=== PATIENT | female | born 1970 | race Caucasian/White ===

== ENCOUNTER 2019-11-06 21:07 | Emergency (ER) | payer OTHER, SELFPAY ==
[2019-11-06 21:15] VITALS: BP 133/80; PULSE 98; RESP 18; TEMP 36.9; O2SAT 100; BMI 33.3
--- NOTE | 2019-11-06 21:20 | ED_ITS ---
HPI - General Adult General Chief complaint: Extremity Injury, Lower Stated complaint: right ankle injury, fall from counter Time Seen by Provider: 11/06/19 21:09 Source: patient Mode of arrival: Wheelchair Limitations: no limitations History of Present Illness HPI narrative: Patient is a 49-year-old female here for evaluation of right ankle injury. Patient states that she was standing on a counter removing tape after she was painting and as she was coming down from the counter she rolled her right ankle. Was unable to walk on it afterwards. Has an abrasion on the outside of the ankle. All of her pain is on the outside of the ankle. She also has numbness and tingling to her foot. Has not tried anything for symptoms prior to arrival. No injuries to this ankle in the past. Arrived in a wheelchair. No other injuries reported from the fall Review of Systems Constitutional Constitutional: Denies fever(s) Cardiovascular Cardiovascular: Denies chest pain and Denies dyspnea Respiratory Respiratory: Denies dyspnea Musculoskeletal Comments: Right ankle pain Integumentary/Breasts Comments: Abrasion to the right ankle Neurologic Comments: Tingling to the right foot Hematologic/Lymphatic Hematologic/Lymphatic: Denies easy bleeding and Denies easy bruising Patient History Medical History Patient denies medical problems (Acute) Social History Smoking Status: Former smoker Exam Initial Vital Signs Initial Vital Signs: Vital Signs Temperature 98.5 F 11/06/19 21:15 Pulse Rate 98 H 11/06/19 21:15 Respiratory Rate 18 11/06/19 21:15 Blood Pressure 133/80 11/06/19 21:15 Pulse Oximetry 100 11/06/19 21:15 Const General: cooperative and comfortable Limitations: mental status not altered HENTN Head: normal to inspection and normocephalic Cardio Pulses: dorsalis pedis present on the right Skin Other: Has a 1 cm x 1 cm abrasion over the lateral malleolus without active bleeding Neuro Other: Reports decrease in sensation to the right foot compared to the left Extrem Other: No proximal fibula tenderness. Has tenderness to palpation of the later al malleolus and the base of the 5th metatarsal. Medial malleolus unremarkable. Cannot flex and extend secondary to pain. The rest of her right foot is unremarkable. Psych Appearance: grossly normal and well kempt Procedures Orthopedic Splinting/Casting Injury #1: Side: right Lower Extremity Injury Location: ankle Lower Extremity Immobilizer: Prieto wrap Post splinting neuro exam: no change Post splinting vascular exam: no change Placed by: Nursing Course Orders Ordered: ED Orders 11/06/19 21:19 XR ankle RT min 3V Stat XR foot RT min 3V Stat Vital Signs Vital signs: Vital Signs - 8 hr 11/06/19 21:15 Temperature 98.5 F Pulse Rate 98 H Respiratory Rate 18 Blood Pressure 133/80 Pulse Oximetry 100 Medical Decision Making Imaging Data Extremity x-ray #1: Radiologist's Impression: [address] [address] XRay Report Signed Patient: Breanna Mendez [facility]#: [id number] : 1970Acct:[id number] Age/Sex: 49 / FDate of Service: 11/06/19 Loc: ED Accession Number: [id number] Procedure: XR foot RT min 3V Ordering Provider: Crow Sparrow D.O. PROCEDURE: XR FOOT RT MIN 3V INDICATIONS: [address] pain after fall TECHNIQUE: 3 views of the foot were acquired. COMPARISON: None. FINDINGS: Bones: No fractures or dislocations. No suspicious bony lesions. Soft tissues: No tibiotalar joint effusion. Achilles tendon appears normal. IMPRESSION: No acute fracture. No osseous lesion. If symptoms and/or clinical suspicion for pathology persist, further assessment with repeat, or advanced imaging (e.g., CT, MRI, or bone scan) may be helpful for further assessment. Dictated by: Kiko Tony M.D. on 11/06/2019 at 21:33 Approved by: Kiko Tony M.D. on 11/06/2019 at 21:34 Extremity x-ray #2: Radiologist's Impression: [address] [address] XRay Report Signed Patient: Breanna Mendez [facility]#: [id number] : 1970Acct:[id number] Age/Sex: 49 / FDate of Service: 11/06/19 Loc: ED Accession Number: [id number] Procedure: XR ankle RT min 3V Ordering Provider: Crow Sparrow D.O. PROCEDURE: XR ANKLE RT MIN 3V INDICATIONS: lateral mal pain after fall TECHNIQUE: 3 views of the ankle were acquired. COMPARISON: None. FINDINGS: Bones: No fractures or dislocations. Ankle mortise is normally aligned. No suspicious bony lesions. Soft tissues: No tibiotalar joint effusion. Achilles tendon appears normal. IMPRESSION: No acute fracture. No osseous lesion. If symptoms and/or clinical suspicion for pathology persist, further assessment with repeat, or advanced imaging (e.g., CT, MRI, or bone scan) may be helpful for further assessment. Dictated by: Kiko Tony M.D. on 11/06/2019 at 21:34 Approved by: Kiko Tony M.D. on 11/06/2019 at 21:34 MDM Narrative Medical decision making narrative: No fractures noted on the x-rays. Has good dorsalis pedis pulse. The abrasion on the ankle needs no intervention. Placed in an Prieto bandage. Offered crutches the patient declined. Did discuss return precautions and follow-up instructions in care instructions. She expressed understanding and agreement. Discharge Plan Departure Patient Disposition: Home Clinical Impression: Ankle sprain Qualifiers: Encounter type: initial encounter Involved ligament of ankle: unspecified ligament Laterality: right Qualified Code(s): S93.401A - Sprain of unspecified ligament of right ankle, initial encounter Instructions: DI for Ankle Sprain, How To Perform RICE (Rest, Ice, Compress, Elevate), How to Apply an Elastic Wrap on Ankle Activity Restrictions/Additional Instructions: I do recommend that you keep your foot elevated and ice on it. I would not be surprised if you get some bruising and swelling over the next couple days. There were no fractures on the x-rays see you can walk on your ankle as tolerated. Return to the emergency department for any new or worsening s ymptoms. You can take Tylenol and/or ibuprofen for any discomfort.
== END 2019-11-06 21:52 | disposition home or self-care (01) ==
PROVIDERS: Emergency Provider Emergency Medicine
DX: S93.401A Sprain of unspecified ligament of right ankle, initial encounter (principal); W22.8XXA Striking against or struck by other objects, initial encounter
CPT/HCPCS: 73610; 73630; 99283

== ENCOUNTER → 2021-01-12 10:30 | Outpatient (CLI) | payer OTHER, SELFPAY ==
[2021-01-12 11:50] LABS: Hemoglobin 13.9 g/dL (12.0-16.0); Mean Corpuscular HGB Conc 33.1 % (30-36); Mean Corpuscular Hemoglobin 29.4 PG (26-34); Platelet Count 170 X10^3/uL (150-400); Red Blood Cell Count 4.72 X10^6/uL (4.0-5.2); Red Cell Distribution Width 13.3 % (11.6-14.8); White Blood Cell Count 3.8 X10^3/uL (4.5-11.0)
[2021-01-12 12:11] LABS: Alanine Aminotransferase 23 IU/L (<35); Albumin 4.3 g/dL (3.5-5.0); Albumin Globulin Ratio 1.4 (1.0-2.8); Alkaline Phosphatase 69 U/L (38-126); Aspartate Aminotransferase 33 IU/L (14-36); BUN Creatinine Ratio 18.9 (6-22); Bilirubin Total 0.5 mg/dL (0.2-1.3); Blood Urea Nitrogen 14 mg/dL (7-17); Calcium 9.5 mg/dL (8.4-10.2); Carbon Dioxide 25 mmol/L (22-32); Chloride 111 mmol/L (98-107); Cholesterol 263 mg/dL (140-199); Estimated Glomerular Filt Rate > 60.0 mL/min (>60); Glucose 98 mg/dL (70-100); HDL Cholesterol 48 mg/dL (40-60); HEMOLYSIS 24 (0-50); LDL Cholesterol Calculated 184 mg/dL (<100); Potassium 4.7 mmol/L (3.4-5.1); Sodium 142 mmol/L (137-145); Total Protein 7.3 g/dL (6.3-8.2); Triglycerides 155 mg/dL (35-150)
[2021-01-12 12:29] LABS: Free T3, Triiodothyronine Free 3.11 pg/mL (2.77-5.27); Free T4, Direct Thyroxine 0.89 ng/dL (0.78-2.19)
[2021-01-12 12:42] LABS: Thyroid Stimulating Hormone 2.02 uIU/mL (0.47-4.68)
== END ==
PROVIDERS: PCP Nurse Practitioner; Referring Provider Nurse Practitioner; Visit Provider Nurse Practitioner
DX: Z00.00 Encounter for general adult medical examination without abnormal findings (principal); F41.8 Other specified anxiety disorders; Z78.0 Asymptomatic menopausal state
CPT/HCPCS: 36415; 80053; 80061; 83001; 84439; 84443; 84481; 85027

== ENCOUNTER 2021-01-14 15:31 | Emergency (ER) | payer OTHER, SELFPAY ==
[2021-01-14 15:35] VITALS: BP 162/79; PULSE 81; RESP 16; TEMP 36.8; O2SAT 98; BMI 37.5
--- NOTE | 2021-01-14 15:54 | DI.RAD.S_ITS ---
PROCEDURE: XR ANKLE RT MIN 3V INDICATIONS: achilles tendon pain, felt pop, unable to bear weight TECHNIQUE: 3 views of the ankle were acquired. COMPARISON: [facility], CR, XR ANKLE RT MIN 3V, 11/06/2019, 21:22. FINDINGS: Bones: No fractures or dislocations. Ankle mortise is normally aligned. No suspicious bony lesions. Soft tissues: No tibiotalar joint effusion. Achilles tendon appears mildly thickened approximately 4 cm above the posterior margin of the calcaneus.. IMPRESSION: Suspect mild focal thickening of the Achilles tendon 4 cm above the calcaneal insertion. MR scanning for more accurate assessment for presence or absence of Achilles tendon partial-thickness tear likely is warranted.. Dictated by: Jean Marie Werner M.D. on 01/14/2021 at 16:36 Approved by: Jean Marie Werner M.D. on 01/14/2021 at 16:44
--- NOTE | 2021-01-14 18:31 | ED_ITS ---
HPI - Extremity Injury (Lower) General Chief Complaint: Extremity Injury, Lower Stated Complaint: rt foot pain, swelling Time Seen by Provider: 01/14/21 18:31 Source: patient Mode of arrival: Family Vehicle History of Present Illness HPI Narrative: 50-year-old woman with a history of anxiety was chasing after her grandchild earlier today she jumped quickly and felt of pain/pop tach/tear in the back of her right calf extending down toward the heel. She did not fall there was no other overt trauma, she has no bruising or hematoma. Her calf is quite tender and swollen and she is having trouble bearing any weight on that foot. She describes no numbness or tingling, there is no knee complaints. Related Data Previous Rx's Medication Instructions Recorded albuterol sulfate 90 mcg/actuation 1 puff INHALATION Q6H PRN #6.7 g 12/08/20 aerosol inhaler (ProAir HFA) buspirone 10 mg tablet 10 mg PO BID #180 tab 12/08/20 Allergies Allergy/AdvReac Type Severity Reaction Status Date / Time levofloxacin [From Levaquin] AdvReac Intermediate Dizziness Verified 01/14/21 15:40 Review of Systems Review of Systems Narrative: Pertinent positive and negative findings as per HPI Remainder of review of systems is otherwise unremarkable for Constitutional: Fevers, chills, weakness ENT: No sore throat, neck pain, ear pain CV: Chest pain, palpitations, Respiratory: Cough, wheeze, dyspnea GI: Nausea, vomiting, diarrhea, : Dysuria, hematuria, Patient History Medical History Asthma Depression with anxiety Menopause Patient denies medical problems Social History Smoking Status: Former smoker Smoking Status: Former smoker alcohol intake frequency: a few times a week Substance Use Type: does not use Exam Narrative Exam Narrative: General: Alert appropriate in no acute distress Respiratory: Able to speak in full sentences, no obvious respiratory distress Skin: No obvious rashes, warm and dry Neurologic: Grossly intact no obvious asymmetries or abnormalities Psych: appropriate insight and affect, cooperative Extremity: Right calf is swollen and extremely tender with compression. Compression does not cause any movement of the foot. She has swelling and tenderness over the Achilles. There is no obvious ecchymosis or skin injury. She is neurovascularly intact Initial Vital Signs Initial Vital Signs: Vital Signs Temperature 98.2 F 01/14/21 15:35 Pulse Rate 81 01/14/21 15:35 Respiratory Rate 16 01/14/21 15:35 Blood Pressure 162/79 H 01/14/21 15:35 Pulse Oximetry 98 01/14/21 15:35 Procedures Orthopedic Splinting/Casting Right lower extremity: Time of procedure: 19:09 Lower Extremity Immobilizer: posterior splint (With foot in slight extension, position of comfort) Post splinting neuro exam: intact Post splinting vascular exam: intact Placed by: Nursing Course Course Course Narrative: 50-year-old woman with likely at least partial Achilles tendon tear. She is placed in a posterior splint is with the foot in slight flexion she is given a walker (she felt that crutches would be too unstable for her), she declined any narcotic medication. Will follow up with Orthopedic surgery for definitive diagnosis and treatment. She is safe for home discharge Orders Ordered: ED Orders 01/14/21 15:54 XR ankle RT min 3V Stat Discontinued Medications Acetaminophen (Acetaminophen 325 Mg Tablet) 325 mg PO NOW ONE Stop: 01/14/21 19:02 Last Admin: 01/14/21 19:05 Dose: 325 mg Documented by: GAVIN Ibuprofen (Ibuprofen 400 Mg Tablet) 400 mg PO NOW ONE Stop: 01/14/21 19:02 Last Admin: 01/14/21 19:05 Dose: 400 mg Documented by: GAVIN Vital Signs Vital signs: Vital Signs - 8 hr 01/14/21 15:35 01/14/21 19:01 Temperature 98.2 F Pulse Rate 81 88 Respiratory Rate 16 20 Blood Pressure 162/79 H 169/54 H Pulse Oximetry 98 99 MDM - Extremity Injury (Lower) Differential Diagnosis Differential diagnosis: Unlikely ankle sprain and strain, acute internal derangement of knee or ankle fracture Imaging Data XR ankle: Radiologist's Impression: FINDINGS: Bones: No fractures or dislocations. Ankle mortise is normally aligned. No suspicious bony lesions. Soft tissues: No tibiotalar joint effusion. Achilles tendon appears mildly thickened approximately 4 cm above the posterior margin of the calcaneus.. IMPRESSION: Suspect mild focal thickening of the Achilles tendon 4 cm above the calcaneal insertion. MR scanning for more accurate assessment for presence or absence of Achilles tendon partial-thickness tear likely is warranted.. Dictated by: Jean Marie Werner M.D. on 01/14/2021 at 16:36 Discharge Plan Departure Patient Disposition: Home Clinical Impression: Achilles tendon tear Qualifiers: Encounter type: initial encounter Laterality: right Qualified Code(s): S86.011A - Strain of right Achilles tendon, initial encounter Instructions: DI for Achilles Tendon Rupture Activity Restrictions/Additional Instructions: Thank you for coming in today Your exam and the history does suggest that you at least partially tore your Achilles tendon. The x-ray is also suggesting this. There are no bony injuries. Need to keep the splint in place and use the walker for stability. You will need to follow-up with Dr. Jackson, orthopedic surgeon with [facility]. Please call [phone] to schedule a follow-up appointment for definitive diagnosis and care. Using 400 mg of ibuprofen (2 [id number]-[id number] pills) and 1 Tylenol every 6 hours can be very helpful in controlling pain. If you find things are worsening please return to the ER. Prescriptions: No Action buspirone 10 mg tablet 10 mg PO BID Qty: 180 RF: 3 albuterol sulfate [ProAir HFA] 90 mcg/actuation HFA aerosol inhaler 1 puff inhalation Q6H PRN (Reason: shortness of breath or wheezing) Qty: 6.7 RF: 2 Referrals: Kimberly Gamino ARNP [Primary Care Provider] - Kee Jackson MD [Physician] -
--- NOTE | 2021-01-14 18:59 | PC.NURSE ---
Pt was splinted in a short posterior leg splint. Circulation intact and pt taught and reiterated how to adjust splint if needed
[2021-01-14 19:01] VITALS: BP 169/54; PULSE 88; RESP 20; O2SAT 99
[2021-01-14] MEDS: ACETAMINOPHEN 325 MG TABLET PO (19:05)
[2021-01-14] MEDS: IBUPROFEN 400 MG TABLET PO (19:05)
--- NOTE | 2021-01-14 19:12 | PC.NURSE ---
No walkers were available to give pt to go home with so the Shaye, assistant warehouse manager said to give her a PT walker and the pt and her daughter stated that they will return it in just a few days after they secure one of their own.
--- NOTE | 2021-01-15 11:10 | PC.NURSE ---
Pt called requesting scooter prescription to [facility] in [place]. Called [facility], Dr. Mike authorized prescription for scooter however [facility] no longer does any DME supplies. Called patient back and made them aware.
== END 2021-01-14 19:27 | disposition home or self-care (01) ==
PROVIDERS: Emergency Provider Emergency Medicine; PCP Nurse Practitioner
DX: S86.011A Strain of right Achilles tendon, initial encounter (principal); X58.XXXA Exposure to other specified factors, initial encounter
CPT/HCPCS: 73610; 99283

== ENCOUNTER 2022-03-28 22:11 | Emergency (ER) | payer OTHER, SELFPAY ==
[2022-03-28 22:32] VITALS: BP 147/72; PULSE 61; RESP 15; TEMP 36.3; O2SAT 95
== END 2022-03-28 23:25 | disposition left against medical advice (07) ==
PROVIDERS: Emergency Provider Emergency Medicine; PCP Nurse Practitioner
CPT/HCPCS: 99281

== ENCOUNTER 2025-02-25 12:16 | Emergency (ER) | payer OTHER, SELFPAY ==
[2025-02-25 12:21] VITALS: BP 164/87; PULSE 93; RESP 18; TEMP 37; O2SAT 96; BMI 37.8
[2025-02-25 12:46] LABS: Add Manual Diff / Slide Review NO; Hematocrit 40.2 % (36-46); Hemoglobin 13.5 g/dL (12.0-16.0); Lymphocytes Absolute Auto 1000 /uL (1100-4500); Mean Corpuscular HGB Conc 33.6 % (30-36); Mean Corpuscular Hemoglobin 28.7 PG (26-34); Mean Corpuscular Volume 85.3 fL (80-100); Platelet Count 189 X10^3/uL (150-400)
[2025-02-25 13:00] LABS: Alanine Aminotransferase 20 IU/L (<35); Albumin 4.5 g/dL (3.5-5.0); Albumin Globulin Ratio 1.4 (1.0-2.8); Alkaline Phosphatase 73 U/L (38-126); Blood Urea Nitrogen 14 mg/dL (7-17); Calcium 9.4 mg/dL (8.4-10.2); Carbon Dioxide 24 mmol/L (22-32); Chloride 105 mmol/L (98-107); Estimated Glomerular Filt Rate > 60 mL/min (>60); Globulin 3.2 g/dL (1.7-4.1); Glucose 98 mg/dL (70-99); HEMOLYSIS < 15 (0-50); Lipase 89 U/L (23-300); Potassium 4.3 mmol/L (3.4-5.1); Sodium 137 mmol/L (137-145); Total Protein 7.7 g/dL (6.3-8.2)
--- NOTE | 2025-02-25 13:31 | DI.CT.S_ITS ---
PROCEDURE: CT ABDOMEN PELVIS W CON INDICATIONS: diarrhea for 1 week, LLQ tenderness TECHNIQUE: After the administration of intravenous contrast, axial sections acquired from the lung bases to the pubic symphysis. Coronal and sagittal reformats were performed. For radiation dose reduction, the following was used: automated exposure control, adjustment of mA and/or kV according to patient size. COMPARISON: None. FINDINGS: Image quality: Diagnostic. Lower Chest: No significant findings. ABDOMEN: Liver: No solid mass. Gallbladder: No radiopaque gallstones or wall thickening. Biliary ducts: No biliary dilation. Pancreas: No ductal dilation. Spleen: Size is within normal limits. Adrenal Glands: No adrenal nodules. Kidneys and Ureters: No hydronephrosis. No solid mass. No complex renal cystic lesion which requires follow up. Stomach and Bowel: There is diffuse wall thickening involving transverse colon, descending colon and sigmoid colon extending to rectal sigmoid junction with narrowing of the lumen and mild pericolonic fat stranding. No small bowel or stomach wall thickening. Small hiatal hernia. Normal wall thickness in ascending colon. No abscess collection. Peritoneum: No abnormal intraperitoneal fluid. No free air. Ventral Wall: No significant ventral hernia. Abdominal Nodes: No retroperitoneal or mesenteric adenopathy by size criteria. Vessels: Aorta and inferior vena cava are normal in size. PELVIS: Pelvic Organs: Unremarkable. Bladder: No bladder wall thickening, accounting for underdistention. Pelvic Nodes: No enlarged lymph nodes. Miscellaneous: No inguinal hernias are seen. Bones: No aggressive osseous abnormality. IMPRESSION: 1. Finding is suggestive of infectious inflammatory colitis involving transverse, descending and sigmoid colon. No abscess collection. No free fluid or free air. No bowel obstruction. Dictated by: Hernandez Foster M.D. on 02/25/2025 at 14:23 Approved by: Hernandez Foster M.D. on 02/25/2025 at 14:24
--- NOTE | 2025-02-25 14:33 | ED_ITS ---
<Statement entered by Ezio Laurent, DO - 02/25/25 17:42> Co-sign statement: I was available for consultation during this patient's emergency department visit. This chart is being signed by myself for administrative purposes only. I do not have direct contact with this patient during this visit. They were seen independently by the APC. HPI - Nausea/Vomiting/Diarrhea General Chief complaint: Nausea/Vomiting/Diarrhea Stated complaint: diarrhea over a wk, headache fever Time Seen by Provider: 02/25/25 12:19 Source: patient Mode of arrival: Ambulatory History of Present Illness HPI Narrative: 55-year-old female presents to the ED with 8 days of diarrhea. Patient states that she was traveling, got the diarrhea towards the end. Two days later, patient started experiencing bilateral ear pain. Patient was diagnosed with bilateral otitis media and prescribed Augmentin. Patient states that her ears have improved, with slight pain in the left ear only. Patient's diarrhea on the other hand has continued unabated. Patient has stopped the Augmentin due to suspicion of it contributing to the diarrhea after having taken 5 days of medication. Endorses mild nausea, abdominal cramping, diarrhea. No fever, chills, chest pain, shortness of breath, vomiting, dysuria, lightheadedness, dizziness, syncope. Related Data Previous Rx's ?Medication ?Instructions ?Recorded albuterol sulfate 90 mcg/actuation 1 puff inhalation Q 6H PRN 12/08/20 aerosol inhaler (ProAir HFA) shortness of breath or wh eezing #6.7 grams buspirone 10 mg tablet 10 mg PO BID #180 tabs 12/08 Allergies Allergy/AdvReac Type Severity Reaction Status Date / Time levofloxacin (From Levaquin) AdvReac Intermediate Dizziness Verified 01/14/21 15:40 Review of Systems Constitutional Constitutional: Denies chills, Denies fatigue, Denies fever(s), Denies frequent falls, Denies lethargy and Denies weakness Eyes Eyes: Denies change in vision, Denies eye discharge, Denies irritation and Denies loss of vision ENT Ears, Nose, Mouth, and Throat: Denies change in voice, Denies dizziness, Reports otalgia, Denies neck pain, Denies sore throat and Denies throat swelling Cardiovascular Cardiovascular: Denies chest pain, Denies irregular heart rhythm, Denies lightheadedness, Denies palpitations, Denies dyspnea, Denies dyspnea on exertion and Denies orthopnea Respiratory Respiratory: Denies cough, Denies dyspnea, Denies dyspnea on exertion and Denies wheezing Gastrointestinal Gastrointestinal: Reports abdominal pain, Denies change in bowel habits, Reports diarrhea, Reports nausea and Denies vomiting Musculoskeletal Musculoskeletal: Denies neck pain and Denies numbness Integumentary/Breasts Skin/Breast: Denies pruritus, Denies erythema, Denies rash and Denies wounds Neurologic Neurologic: Denies behavioral changes, Denies confusion, Denies dizziness, Denies frequent falls, Denies loss of vision, Denies numbness and Denies weakness Psychiatric Psychiatric: Denies anxiety, Denies behavioral changes, Denies confusion, Denies depression, Denies homicidal ideation and Denies suicidal ideation Endocrine Endocrine: Denies fatigue, Denies flushing and Denies palpitations Hematologic/Lymphatic Hematologic/Lymphatic: Denies easy bruising Allergic/Immunologic Allergic/Immunologic: Denies urticaria, Denies throat swelling and Denies wheezing Patient History Medical History Dry eyes Wears glasses Hearing loss Sjogren's syndrome (~2018) Allergies Fibromyalgia (~1999) Chronic back pain Chicken pox (~1971) Painful menstrual periods Ovarian cyst Heavy menstrual period Endometriosis Asthma Menopause (~2019) Depression with anxiety Patient denies medical problems Surgical History Anesthesia History of appendectomy (~02/2013) Family History Mother Cancer Diabetes mellitus Hypertension Hyperlipidemia Mental health problem Stroke Brother HIV disease Grandfather Cancer Grandmother History of heart disease Hypertension Stroke Social History Smoking Status: Former smoker Smoking Status: Former smoker alcohol intake frequency: a few times a week Exam Narrative Exam Narrative: Const General:?cooperative, healthy appearing and comfortable [facility] Head:?normal to inspection Ears:?hearing grossly normal bilaterally Nose:?external nose normal Face and sinus:?normal facial exam and sinuses nontender Mouth:?oral mucosae normal Throat:?posterior oropharynx normal Eyes General:?appearance normal, both eyes and all related structures Neck Neck:?normal visual inspection and no lymphadenopathy noted Resp Effort & Inspection:?normal respiratory effort Auscultation:?clear to auscultation bilaterally Cardio Rate:?regular rate Rhythm:?regular rhythm GI Abdomen is soft, nondistended. There is generalized tenderness to palpation, most tender in the LLQ Neuro General:?patient alert, patient awake and patient oriented x3 Initial Vital Signs Initial Vital Signs: Vital Signs Temperature 98.6 F 02/25/25 12:21 Pulse Rate 93 H 02/25/25 12:21 Respiratory Rate 18 02/25/25 12:21 Blood Pressure 164/87 H 02/25/25 12:21 Pulse Oximetry 96 02/25/25 12:21 Oxygen Delivery Method Room Air 02/25/25 12:21 Course Orders Ordered: ED Orders 02/25/25 12:35 Complete Blood Count AUTO DIFF Stat Comprehensive Metabolic Panel Stat Lipase Stat 02/25/25 13:31 CT abdomen pelvis w con Stat Discontinued Medications Ondansetron HCl (Ondansetron 4 Mg/2 Ml Inj) 4 mg IV NOW PRN PRN Reason: Nausea And Vomiting Ondansetron HCl (Ondansetron 4 Mg Odt) 4 mg PO NOW PRN PRN Reason: Nausea And Vomiting Vital Signs Vital signs: Vital Signs - 8 hr 02/25/25 12:21 02/25/25 15:17 Temperature 98.6 F 97.7 F Pulse Rate 93 H 68 Respiratory Rate 18 16 Blood Pressure 164/87 H 127/65 Pulse Oximetry 96 97 Oxygen Delivery Method Room Air Room Air MDM - Nausea/Vomiting/Diarrhea Lab Data 02/25/25 12:35 02/25/25 12:35 Labs: Lab Results 02/25/25 Range/Units 12:35 WBC 9.8 (4.5-11.0) X10^3/uL RBC 4.72 (4.0-5.2) X10^6/uL Hgb 13.5 (12.0-16.0) g/dL Hct 40.2 (36-46) % MCV 85.3 (80-100) fL MCH 28.7 (26-34) PG MCHC 33.6 (30-36) % RDW 13.4 (11.6-14.8) % Plt Count 189 (150-400) X10^3/uL Neut % (Auto) 80.2 H (50-75) % Lymph % (Auto) 9.9 L (25-40) % Lassen % (Auto) 9.1 (3-14) % Eos % (Auto) 0.2 L (2-4) % Baso % (Auto) 0.6 (0-2) % Neut # (Auto) 7900 H (6249-7839) /uL Lymph # (Auto) 1000 L (8376-6600) /uL Lassen # (Auto) 900 (0-900) /uL Eos # (Auto) 0 (0-450) /uL Baso # (Auto) 100 (0-100) /uL Sodium 137 (137-145) mmol/L Potassium 4.3 (3.4-5.1) mmol/L Chloride 105 (98-107) mmol/L Carbon Dioxide 24 (22-32) mmol/L BUN 14 (7-17) mg/dL Creatinine 0.91 (0.52-1.04) mg/dL Estimated GFR > 60 (>60) mL/min BUN/Creatinine Ratio 15.4 (6-22) Glucose 98 (70-99) mg/dL Calcium 9.4 (8.4-10.2) mg/dL Total Bilirubin 0.8 (0.2-1.3) mg/dL AST 27 (14-36) IU/L ALT 20 (<35) IU/L Alkaline Phosphatase 73 (38-126) U/L Total Protein 7.7 (6.3-8.2) g/dL Albumin 4.5 (3.5-5.0) g/dL Globulin 3.2 (1.7-4.1) g/dL Albumin/Globulin Ratio 1.4 (1.0-2.8) Lipase 89 (23-300) U/L MDM Narrative Medical decision making narrative: 55-year-old female presents to the ED with 8 days of diarrhea. Concern for gastroenteritis versus medication reaction versus diverticulitis versus other intra-abdominal pathology versus other. Will obtain labs, CT abdomen pelvis. Labs within normal limits. CT abdomen pelvis shows findings suggestive of infectious inflammatory colitis involving transverse, descending and sigmoid colon. No abscess collection. No free fluid or free air. No bowel obstruction. Discussed findings with patient. Recommend BRAT diet. Recommend good hydration. Recommend stopping the Augmentin since eardrums appear normal. Patient good dry Imodium if diarrhea continues. Recommend follow-up with PCP as soon as possible. ED return precautions discussed with patient. Patient verbalized understanding. Medical records reviewed: Yes Discharge Plan Departure Patient Disposition: Home Clinical Impression: Gastroenteritis Instructions: DI for Viral Gastroenteritis -- Adult Activity Restrictions/Additional Instructions: You were evaluated in the emergency department today for diarrhea and ear pain. It is reassuring to note that your eardrums appear normal and that your ear infection has resolved. The CT scan shows food poisoning as the source of your diarrhea. It is also possible that the Augmentin that you took for the ear infection caused the extended bout of diarrhea. It is advised that you stop the Augmentin. Please continue to consume plenty of water to stay hydrated. A BRAT diet consisting of bananas, rice, apples, toast will be helpful to control the diarrhea. You may also try 1-2 doses of Imodium which is available [id number] if you continue to have diarrhea. Return to the ED if you have worsening symptoms. Prescriptions: No Action buspirone 10 mg tablet 10 mg PO BID Qty: 180 3RF Rx Instructions: Take 1 tab twice per day for anxiety. albuterol sulfate [ProAir HFA] 90 mcg/actuation HFA aerosol inhaler 1 puff inhalation Q6H PRN (Reason: shortness of breath or wheezing) Qty: 6.7 2RF Rx Instructions: Take 1 puff inh q 6 hrs for shortness of breath, cough, or wheezing Referrals: Kimberly Gamino ARNP [Primary Care Provider, Family Practice] Stand Alone Forms: Patient Portal/API
[2025-02-25 15:17] VITALS: BP 127/65; PULSE 68; RESP 16; TEMP 36.5; O2SAT 97
== END 2025-02-25 15:17 | disposition home or self-care (01) ==
PROVIDERS: Family Medicine; Emergency Provider Student in an Organized Health Care Education/Training Program; PCP Nurse Practitioner
DX: K52.9 Noninfective gastroenteritis and colitis, unspecified (principal)
CPT/HCPCS: 74177; 80053; 83690; 85025; 96372; 99281; 99284; Q9967